=== PATIENT | female | born 1960 | race Caucasian/White ===

== ENCOUNTER 2022-11-20 08:16 | Day surgery (SDC) | payer OTHER ==
[2022-11-19 13:37] LABS: COVID AG,FIA SOURCE NASAL SWAB
[~2022-11-20] VITALS: Ht 152.4 cm; Wt 58.6 kg
[~2022-11-20 08:16] MED LIST: ACET-2247 PO; FURO40 PO; GABA-1216 PO; LIDO1ADH23 TP; PANT-31 PO; SODIUM CHLORIDE 0.9% 1,000 ML IV ONE; SODIUM CHLORIDE 0.9% 1,000 ML ONE; SPIR50TA27 PO
[2022-11-20] MEDS ORDERED: OXYGEN THERAPY IH SCH (20:00)
== END 2022-11-20 12:00 | disposition home or self-care (01) ==
LOC: SURGERY 08:16
PROVIDERS: ATTEND Specialist
DX: I85.00 Esophageal varices without bleeding (principal); K31.89 Other diseases of stomach and duodenum; K63.5 Polyp of colon; K70.30 Alcoholic cirrhosis of liver without ascites; K43.9 Ventral hernia without obstruction or gangrene; Z20.822 Contact with and (suspected) exposure to COVID-19; Z79.899 Other long term (current) drug therapy
CPT/HCPCS: 43205; 87426; C9803; C1716; J7030